=== PATIENT | female | born 1995 | race Caucasian/White ===

== ENCOUNTER 2016-09-04 20:05 | Emergency (ER) | payer OTHER ==
--- NOTE | 2016-09-04 22:45 | DIAGNOSTIC IMAGING REPORT ---
PROCEDURE: XR ANKLE 3 OR 4 VIEWS - LEFT INDICATION: Pain, fall on stairs TECHNIQUE: Four views of the left ankle. COMPARISON: None. FINDINGS: Normal mineralization. No fractures. Ankle mortise intact. Normal osseous alignment. No tibiotalar joint effusion. No suspicious soft-tissue calcification or radiodense foreign bodies. Achilles tendon appears grossly normal. IMPRESSION: 1. Intact left ankle.
--- NOTE | 2016-09-05 02:38 | ED ORDER SUMMARY ---
..... Patient: JESSICA CASTELLON OrderSheet [facility] VisitID: [id number] [place] [address] 21y, F Registration Date/Time: 09/04/2016 ORDER SHEET Weight: 52.1 kg (stated) Allergies: No Known Drug Allergy GENERAL ORDERS: Ankle 3 or 4V Right Urgent (20:18 09/04/2016 HBivens A.R.N.P.) (Ack 20:19 Yairimana) (Cancelled: Other20:22 [facility] Infectious Disease Technician) Ankle 3 or 4V Left Urgent (20:23 09/04/2016 [facility] Infectious Disease Technician written order HBivens A.R.N.P.) (Ack 20:24 Yairimana) (20:33 [facility]amp[facility]) MEDICATION ORDERS: IV FLUIDS: ORDER SHEET NOTES: [Electronically signed by Bertha Celis.R.N.PJustino (22:20 09/04/2016)] [Electronically signed by Mague Bronson R.N. (06:20 09/05/2016)] [Electronically locked/signed by Mague Bronson R.N. (06:20 09/05/2016)]
--- NOTE | 2016-09-05 02:38 | ED NURSING NOTES ---
Clinical Report - Nurses [address] [place] [address] 09/04/2016 20:08 Patient: JESSICA CASTELLON TRIAGE Triage time 20:18 Sep 04 2016. Acuity: LEVEL 3. Chief Complaint: INJURY TO LEFT ANKLE. LEBRON COMA SCORE: [place] Coma Scale: 15- eyes open spontaneously (4); best verbal response- oriented x 4 (5); best motor response- obeys commands (6). --20:22 Mague Bronson R.N. 20:18 09/04/16. BP: 129/77. HR: 87. RR: 20. O2 saturation: 100%. Temp: 98.1 F. Pain level now 3/10. --20:22 Mague Bronson R.N. Weight: 52.1 kg stated. Height/Length: 65 inches Per Patient. BMI: 19.1. --20:21 Mague Bronson R.N. Medications Dayquil. --20:20 Mague Bronson R.N. Allergies No Known Drug Allergy. --20:20 Mague Bronson R.N. History Arrived by private vehicle. Historian: patient. This occurred just prior to arrival. Mechanism of injury: fell. 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 She has had mild trouble walking. The patient has been limping when trying to walk. No numbness, tingling, weakness, neck pain or back pain. 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 PAST MEDICAL HX: Negative. Tetanus status: up-to-date. Immunizations: up-to-date. Last normal menstrual period- 2 weeks ago. SOCIAL HX: Never smoker. Alcohol use; consumes beer occasionally. No drug use. No infectious disease exposure. SELF HARM ASSESSMENT: A self harm assessment was performed. The patient answered "no" to the question "Have you recently felt down, depressed, or hopeless?" and "Do you have thoughts of harming or killing yourself?". FALL RISK ASSESSMENT: Fall risk assessment completed. No fall risk identified. NUTRITIONAL RISK ASSESSMENT: The nutritional risk assessment revealed no deficiencies. FUNCTIONAL ASSESSMENT: Functional assessment: no impairments noted. LEARNING NEEDS ASSESSMENT: The learning needs assessment revealed no barriers. ABUSE ASSESSMENT: Abuse assessment: (yes) The patient was asked "Do you feel safe in your home?". SKIN INTEGRITY ASSESSMENT: Skin integrity risk assessment completed. No skin integrity risk identified. --20:22 Mague Bronson R.N. PROBLEMS: no known problems. ADDITIONAL SURGERIES: no known surgeries. Interventions ID band on patient. --20:22 Mague Bronson R.N. PHYSICAL ASSESSMENT Ambulatory to room. GENERAL / NEURO / PSYCH: Oriented X 4. Appears in pain. EXTREMITIES: Capillary refill is less than 2 seconds in the extremities. Extremity pulses are within normal limits. Pain with weight bearing. Limping gait. Neuro-vascular status intact to the extremity. Left ankle: and ankle: tenderness. SKIN: Skin intact. Skin is warm and dry. --20:23 Mague Bronson R.N. NURSING PROGRESS NOTES Cold pack applied. Reassurance given. Call light placed in reach. Side rails up x 1. --20:23 Mague Bronson R.N. DISPOSITION / DISCHARGE Departure time: 21:46 Sep 04 2016. Condition at departure: improved. No learning barriers present. Discharge instructions provided and reviewed with the patient. Reviewed warnings. Reviewed medication(s). Treatments reviewed. Reviewed referrals. Patient verbalized understanding. Written instructions provided in Slovenian. The patient was discharged home and accompanied by fundraising specialist. She left the Emergency Department ambulatory and via private vehicle. Patient driving. --21:46 Mague Bronson R.N. 21:37 09/04/16. BP: 117/65. HR: 86. RR: 18. O2 saturation: 100%. Temp: 98.4 F. Pain level now 08/09. --21:46 Mague Bronson R.N. Locked/Released at 09/05/2016 6:21 by Mague Bronson R.N.
--- NOTE | 2016-09-05 02:38 | ED ORDER SUMMARY ---
..... Patient: JESSICA CASTELLON OrderSheet [facility] VisitID: [id number] [place] [address] 21y, F Registration Date/Time: 09/04/2016 ORDER SHEET Weight: 52.1 kg (stated) Allergies: No Known Drug Allergy GENERAL ORDERS: Ankle 3 or 4V Right Urgent (20:18 09/04/2016 HBivens A.R.N.P.) (Ack 20:19 Yairimana) (Cancelled: Other20:22 [facility] Information Technology Assistant) Ankle 3 or 4V Left Urgent (20:23 09/04/2016 [facility] Information Technology Assistant written order HBivens A.R.N.P.) (Ack 20:24 Yairimana) (20:33 MCampbell) MEDICATION ORDERS: IV FLUIDS: ORDER SHEET NOTES: [Electronically signed by Bertha Celis.R.N.PJustino (22:20 09/04/2016)] [Electronically signed by Mague Bronson R.N. (06:20 09/05/2016)] [Electronically locked/signed by Mague Bronson R.N. (06:20 09/05/2016)]
--- NOTE | 2016-09-05 02:38 | ED NURSING NOTES ---
Clinical Report - Nurses [address] [place] [address] 09/04/2016 20:08 Patient: JESSICA CASTELLON TRIAGE Triage time 20:18 Sep 04 2016. Acuity: LEVEL 3. Chief Complaint: INJURY TO LEFT ANKLE. LEBRON COMA SCORE: [place] Coma Scale: 15- eyes open spontaneously (4); best verbal response- oriented x 4 (5); best motor response- obeys commands (6). --20:22 Mague Bronson R.N. 20:18 09/04/16. BP: 129/77. HR: 87. RR: 20. O2 saturation: 100%. Temp: 98.1 F. Pain level now 3/10. --20:22 Mague Bronson R.N. Weight: 52.1 kg stated. Height/Length: 65 inches Per Patient. BMI: 19.1. --20:21 Mague Bronson R.N. Medications Dayquil. --20:20 Mague Bronson R.N. Allergies No Known Drug Allergy. --20:20 Mague Bronson R.N. History Arrived by private vehicle. Historian: patient. This occurred just prior to arrival. Mechanism of injury: fell. 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 She has had mild trouble walking. The patient has been limping when trying to walk. No numbness, tingling, weakness, neck pain or back pain. 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 PAST MEDICAL HX: Negative. Tetanus status: up-to-date. Immunizations: up-to-date. Last normal menstrual period- 2 weeks ago. SOCIAL HX: Never smoker. Alcohol use; consumes beer occasionally. No drug use. No infectious disease exposure. SELF HARM ASSESSMENT: A self harm assessment was performed. The patient answered "no" to the question "Have you recently felt down, depressed, or hopeless?" and "Do you have thoughts of harming or killing yourself?". FALL RISK ASSESSMENT: Fall risk assessment completed. No fall risk identified. NUTRITIONAL RISK ASSESSMENT: The nutritional risk assessment revealed no deficiencies. FUNCTIONAL ASSESSMENT: Functional assessment: no impairments noted. LEARNING NEEDS ASSESSMENT: The learning needs assessment revealed no barriers. ABUSE ASSESSMENT: Abuse assessment: (yes) The patient was asked "Do you feel safe in your home?". SKIN INTEGRITY ASSESSMENT: Skin integrity risk assessment completed. No skin integrity risk identified. --20:22 Mague Bronson R.N. PROBLEMS: no known problems. ADDITIONAL SURGERIES: no known surgeries. Interventions ID band on patient. --20:22 Mague Bronson R.N. PHYSICAL ASSESSMENT Ambulatory to room. GENERAL / NEURO / PSYCH: Oriented X 4. Appears in pain. EXTREMITIES: Capillary refill is less than 2 seconds in the extremities. Extremity pulses are within normal limits. Pain with weight bearing. Limping gait. Neuro-vascular status intact to the extremity. Left ankle: and ankle: tenderness. SKIN: Skin intact. Skin is warm and dry. --20:23 Mague Bronson R.N. NURSING PROGRESS NOTES Cold pack applied. Reassurance given. Call light placed in reach. Side rails up x 1. --20:23 Mague Bronson R.N. DISPOSITION / DISCHARGE Departure time: 21:46 Sep 04 2016. Condition at departure: improved. No learning barriers present. Discharge instructions provided and reviewed with the patient. Reviewed warnings. Reviewed medication(s). Treatments reviewed. Reviewed referrals. Patient verbalized understanding. Written instructions provided in Thai. The patient was discharged home and accompanied by communication consultant. She left the Emergency Department ambulatory and via private vehicle. Patient driving. --21:46 Mague Bronson R.N. 21:37 09/04/16. BP: 117/65. HR: 86. RR: 18. O2 saturation: 100%. Temp: 98.4 F. Pain level now 08/09. --21:46 Mague Bronson R.N. Locked/Released at 09/05/2016 6:21 by Mague Bronson R.N.
--- NOTE | 2016-09-05 02:38 | ED CLINICAL REPORT ---
Clinical Report - Physicians/Mid Levels [facility] [address] [place] [address] 09/04/2016 20:08 Patient: JESSICA CASTELLON Time Seen: 20:11; upon arrival, initial patient contact, initial documentation, patient care assumed. Arrived- By private vehicle. Historian- patient. HISTORY OF PRESENT ILLNESS Chief Complaint: Injury to the left ankle. The injury happened just prior to arrival. Fell while walking and landed on a concrete surface; slipped. Occurred at work. Patient is experiencing mild pain. Patient denies injury to the head or neck. Patient also notes injury to the right lower extremity (knee). REVIEW OF SYSTEMS The patient complains of pain on weight bearing. No swelling, tingling, weakness, numbness or skin laceration. All systems otherwise negative, except as recorded above. PAST HISTORY Negative. SOCIAL HISTORY Never smoker. No alcohol use or drug use. No recent travel. Is a local resident. FAMILY HISTORY No significant family medical history. ADDITIONAL NOTES The nursing notes have been reviewed with agreement regarding the chief complaint, HPI, ROS, PMH and patient medications and allergies. PHYSICAL EXAM Vital Signs: 09/04/2016 20:18 BP: 129/77. HR: 87. RR: 20. O2 saturation: 100%. Temp: 98.1 F. Have been reviewed as normal and appear to be correct. Appearance: Alert. Oriented X3. No acute distress. Head: Head atraumatic. Eyes: Pupils equal, round and reactive to light. Eyes normal inspection. Neck: Normal inspection. Neck supple. C-spine non-tender. Respiratory: No respiratory distress. Back: Normal inspection. No tenderness. ROM normal. Skin: Skin intact. Skin warm and dry. Extremities: Ankle injury present. Left lateral ankle: mild tenderness of the lateral malleolus. Neurovascular intact distally. No ligamentous laxity present. No joint effusion. No erythema, swelling, laceration, abrasion or ecchymosis. No puncture wound. No limitation in ROM. No foot injury. Foot and ankle exam otherwise negative. Extremities otherwise negative. Gait: Normal gait. Neuro, Vascular and Tendons: Vascular status intact. Sensation intact. Motor intact. Tendon function intact. Neuro: Oriented X 3. No motor deficit. No sensory deficit. LABS, X-RAYS, AND EKG X-Rays: X-rays are normal and reveal no acute disease (reviewed by dr perdomo). Left ankle negative. The X-rays were independently viewed by me. PROGRESS AND PROCEDURES Course of Care: 20:18 09/04/16. pt has brief beena, nothing alarming 21:31 09/04/16. L&I paperwork completed. Patient counseled in person regarding the patient's stable condition, test results and diagnosis. Differential Diagnosis: Other possible considerations: ankle fx vs sprain. Above considerations are based on history, physical exam and X-Ray data. Differential diagnosis was discussed with patient. Disposition: Discharged home in good and unchanged condition (21:31). Condition: good and stable. CLINICAL IMPRESSION Sprain of the tibiofibular ligament of the left ankle. Fall on same level by slipping. INSTRUCTIONS Apply ice for 20 minutes four times a day for one days. Elevate affected areas above chest level for one days until better. Warnings: GENERAL WARNINGS: Return or contact your physician immediately if your condition worsens or changes unexpectedly, if not improving as expected, or if other problems arise. Specifically return if problem worsens. Prescription Medications: Naproxen 500 mg tablets: take 1 orally every 12 hours as needed for pain. Dispense twenty (20). No refills. Follow-up: Follow up with your doctor in about one week as needed. Call for an appointment. Summary of care provided to patient. Understanding of the discharge instructions verbalized by patient. (Electronically signed by Bertha Celis A.R.N.P. 09/04/2016 22:20)
--- NOTE | 2016-09-05 06:21 | ED MED RECONCILIATION SUMMARY ---
Patient: JESSICA CASTELLON Medication Reconciliation Report [facility] VisitID: [id number] [place] [address] 21y, F Registration Date/Time: 09/04/2016 Weight: 52.1 kg Height/Length: 65 in. BMI: 19.1 ALLERGIES: No Known Drug Allergy The patient's Home Medications are listed below: THE FOLLOWING MEDICATIONS NEED TO BE RECONCILED: Dayquil The source(s) of the original Home Medication information: Not obtained. The following Medications were given to the patient in the Emergency Department: None. The following Medications were prescribed to the patient: Naproxen 500 mg tablets: take 1 orally every 12 hours as needed for pain. Dispense twenty (20). No refills. -- Bertha Celis A.R.N.P.
--- NOTE | 2016-09-05 06:21 | ED DISCHARGE INSTRUCTIONS ---
Patient: JESSICA CASTELLON General Instructions [facility] VisitID: [id number] [place] [address] 21y, F Registration Date/Time: 09/04/2016 Sprain of the tibiofibular ligament of the left ankle. Fall on same level by slipping. INSTRUCTIONS Apply ice for 20 minutes four times a day for one days. Elevate affected areas above chest level for one days until better. Warnings: GENERAL WARNINGS: Return or contact your physician immediately if your condition worsens or changes unexpectedly, if not improving as expected, or if other problems arise. Specifically return if problem worsens. Prescription Medications: Naproxen 500 mg tablets: take 1 orally every 12 hours as needed for pain. Dispense twenty (20). No refills. Follow-up: Follow up with your doctor in about one week as needed. Call for an appointment. Summary of care provided to patient. Understanding of the discharge instructions verbalized by patient. ADDITIONAL INFORMATION Mechanical Fall You have had a fall today. It appears that the cause is mechanical. That means that you slipped, tripped or lost your balance. If your fall had been due to fainting or a seizure, further tests would be required. Home Care: Rest today and resume your normal activities when you are feeling back to normal. If you were injured during the fall, follow the advice from your doctor regarding care of your injury. You may use acetaminophen (Tylenol) or ibuprofen (Motrin, Advil) to control pain, unless another pain medicine was prescribed. [NOTE: If you have chronic liver or kidney disease or ever had a stomach ulcer or GI bleeding, talk with your doctor before using these medicines.] Fall Prevention: Was there anything that caused your fall that can be fixed, removed, or replaced? Make your home safe by keeping walkways clear of objects you may trip over. Use non-slip pads under rugs. Do not walk in poorly lit areas. Do not stand on chairs or wobbly ladders. Use caution when reaching overhead or looking upward. This position can cause a loss of balance. Be sure your shoes fit properly, have non-slip bottoms and are in good condition. Be cautious when going up and down curbs, and walking on uneven sidewalks. If your balance is poor, consider using a cane or walker. Stay as active as you can. Balance, flexibility, strength, and endurance all come from exercise. They all play a role in preventing falls. Follow Up with your doctor or as advised by our staff. Get Prompt Medical Attention if any of the following occur: Repeated mechanical falls, or unexplained falls Dizziness, fainting or seizure Severe headache Chest pain or shortness of breath Palpitations (very rapid or very slow or irregular heartbeat) Blood in vomit, stools (black or red color) Weakness of an arm or leg or one side of the face Difficulty with speech or vision Sprain, Ankle,With X-Ray A sprain is an injury to the ligaments or capsule that holds a joint together. There are no broken bones. Most sprains take from four to six weeks to heal. If the ligament is completely torn (severe sprain), it can take several months to recover. Mild to moderate sprains may be treated with an elastic wrap or an in-shoe splint to provide support and prevent re-injury. A mild sprain may not require any additional support. A severe sprain may require surgery to repair. Home care The following guidelines will help you care for your injury at home: Stay off the injured leg as much as possible until you can walk on it without pain. If you have a lot of pain with walking, crutches or a walker may be prescribed. (These can be rented or purchased at many pharmacies and surgical or orthopedic supply stores). Follow your doctor's advice regarding when to begin bearing weight on that leg. Keep your leg elevated to reduce pain and swelling. When sleeping, place a pillow under the injured leg. When sitting, support the injured leg so it is level with your waist. This is very important during the first 48 hours. Apply an ice pack (ice cubes in a plastic bag, wrapped in a towel) over the injured area for 20 minutes every 12 hours the first day. You can place the ice pack directly over the splint/cast. If you were given a boot, open it to apply the ice pack. Continue with ice packs 34 times a day for the next two days, then as needed for the relief of pain and swelling. You may use acetaminophen or ibuprofen to control pain, unless another pain medicine was prescribed. If you have chronic liver or kidney disease or ever had a stomach ulcer or GI bleeding, talk with your doctor before using these medicines. You may return to sports after healing, when you can run without pain. A sprained ankle is at risk for re-injury during the first six weeks. During that time, protect your ankle with an in-shoe splint that prevents tilting of your ankle from side to side. This is very important if you do active work or play sports during that time. Follow-up care Any X-rays you had today dont show any broken bones, breaks, or fractures. Sometimes fractures dont show up on the first X-ray. Bruises and sprains can sometimes hurt as much as a fracture. These injuries can take time to heal completely. If your symptoms dont improve or they get worse, talk with your doctor. You may need a repeat X-ray. When to seek medical care Get prompt medical attention if any of the following occur: The plaster cast or splint gets wet or soft The fiberglass cast or splint gets wet and does not dry for 24 hours Pain or swelling increases, or redness appears Toes become cold, blue, numb or tingly Re-injure your ankle Naproxen Sodium Oral tablet What is this medicine? NAPROXEN (na PROX en) is a non-steroidal anti-inflammatory drug (NSAID). It is used to reduce swelling and to treat pain. This medicine may be used for dental pain, headache, or painful monthly periods. It is also used for painful joint and muscular problems such as arthritis, tendinitis, bursitis, and gout. How should I use this medicine? Take this medicine by mouth with a glass of water. Follow the directions on the prescription label. Take it with food if your stomach gets upset. Try to not lie down for at least 10 minutes after you take it. Take your medicine at regular intervals. Do not take your medicine more often than directed. Long-term, continuous use may increase the risk of heart attack or stroke. A special MedGuide will be given to you by the pharmacist with each prescription and refill. Be sure to read this information carefully each time. Talk to your dietary aide teacher regarding the use of this medicine in children. Special care may be needed. What side effects may I notice from receiving this medicine? Side effects that you should report to your doctor or health child care worker as soon as possible: black or bloody stools, blood in the urine or vomit blurred vision chest pain difficulty breathing or wheezing nausea or vomiting severe stomach pain skin rash, skin redness, blistering or peeling skin, hives, or itching slurred speech or weakness on one side of the body swelling of eyelids, throat, lips unexplained weight gain or swelling unusually weak or tired yellowing of eyes or skin Side effects that usually do not require medical attention (report to your doctor or health child care worker if they continue or are bothersome): constipation headache heartburn What may interact with this medicine? alcohol aspirin cidofovir diuretics lithium methotrexate other drugs for inflammation like ketorolac or prednisone pemetrexed probenecid warfarin What if I miss a dose? If you miss a dose, take it as soon as you can. If it is almost time for your next dose, take only that dose. Do not take double or extra doses. Where should I keep my medicine? Keep out of the reach of children. Store at room temperature between 15 and 30 degrees C (59 and 86 degrees F). Keep container tightly closed. Throw away any unused medicine after the expiration date. What should I tell my health care provider before I take this medicine? They need to know if you have any of these conditions: asthma cigarette smoker drink more than 3 alcohol containing drinks a day heart disease or circulation problems such as heart failure or leg edema (fluid retention) high blood pressure kidney disease liver disease stomach bleeding or ulcers an unusual or allergic reaction to naproxen, aspirin, other NSAIDs, other medicines, foods, dyes, or preservatives or trying to get breast-feeding What should I watch for while using this medicine? Tell your doctor or health child care worker if your pain does not get better. Talk to your doctor before taking another medicine for pain. Do not treat yourself. This medicine does not prevent heart attack or stroke. In fact, this medicine may increase the chance of a heart attack or stroke. The chance may increase with longer use of this medicine and in people who have heart disease. If you take aspirin to prevent heart attack or stroke, talk with your doctor or health child care worker. Do not take other medicines that contain aspirin, ibuprofen, or naproxen with this medicine. Side effects such as stomach upset, nausea, or ulcers may be more likely to occur. Many medicines available without a prescription should not be taken with this medicine. This medicine can cause ulcers and bleeding in the stomach and intestines at any time during treatment. Do not smoke cigarettes or drink alcohol. These increase irritation to your stomach and can make it more susceptible to damage from this medicine. Ulcers and bleeding can happen without warning symptoms and can cause . You may get drowsy or dizzy. Do not drive, use machinery, or do anything that needs mental alertness until you know how this medicine affects you. Do not stand or sit up quickly, especially if you are an older patient. This reduces the risk of dizzy or fainting spells. This medicine can cause you to bleed more easily. Try to avoid damage to your teeth and gums when you brush or floss your teeth. You have been given the following additional information: Fall, Mechanical Sprain, Ankle, With X-Ray Naproxen Sodium Oral tablet (Electronically signed by Bertha Celis A.R.N.P. 09/04/2016 22:20)
--- NOTE | 2016-09-05 06:21 | ED MAR SUMMARY ---
..... Medication Administration Record [facility] [address] [place], [place] [id number] Patient: JESSICA CASTELLON Visit ID: [id number] 21y, F Weight: 52.1 kg Height/Length: 65 in BMI: 19.1 ALLERGIES: No Known Drug Allergy
--- NOTE | 2016-09-05 06:21 | ED MAR SUMMARY ---
..... Medication Administration Record [facility] [address], [place] [id number] Patient: JESSICA CASTELLON Visit ID: [id number] 21y, F Weight: 52.1 kg Height/Length: 65 in BMI: 19.1 ALLERGIES: No Known Drug Allergy
--- NOTE | 2016-09-05 06:21 | ED MED RECONCILIATION SUMMARY ---
Patient: JESSICA CASTELLON Medication Reconciliation Report [facility] VisitID: [id number] [place] [address] 21y, F Registration Date/Time: 09/04/2016 Weight: 52.1 kg Height/Length: 65 in. BMI: 19.1 ALLERGIES: No Known Drug Allergy The patient's Home Medications are listed below: THE FOLLOWING MEDICATIONS NEED TO BE RECONCILED: Dayquil The source(s) of the original Home Medication information: Not obtained. The following Medications were given to the patient in the Emergency Department: None. The following Medications were prescribed to the patient: Naproxen 500 mg tablets: take 1 orally every 12 hours as needed for pain. Dispense twenty (20). No refills. -- Bertha Celis A.R.N.P.
== END 2016-09-04 21:45 | disposition home or self-care (01) ==
LOC: ED SRH 20:05
DX: S93.432A Sprain of tibiofibular ligament of left ankle, initial encounter (principal); W01.0XXA Fall on same level from slipping, tripping and stumbling without subsequent striking against object, initial encounter; Y92.9 Unspecified place or not applicable; Y93.01 Activity, walking, marching and hiking; Y99.0 Civilian activity done for income or pay

== ENCOUNTER 2016-09-23 21:00 | Emergency (ER) | payer OTHER ==
--- NOTE | 2016-09-23 22:19 | ED NURSING NOTES ---
Clinical Report - Nurses [facility] [address] [place] [address] 09/23/2016 21:00 Patient: JESSICA CASTELLON TRIAGE Triage time 21:25. Acuity: LEVEL 4. Chief Complaint: LEFT LOWER EXTREMITY PAIN and SWELLING. --21: Linh Dia 21:25 09/23/16. BP: 104/63. HR: 75. RR: 16. O2 saturation: 100%. Temp: 98 F. Pain level now: 10/07. --21: Melita Dia. Weight: 56.6 kg. Height/Length: 64 inches. BMI: 21.4. --: Linh Dia Medications None. --: Linh Dia Allergies No Known Drug Allergy. --: Linh Dia History Arrived by private vehicle. Historian: patient. Accompanied by friend. ( pt hurt her left ankle on 09-04 and was seen her pt is back because she states that pain is worse and ankle still hurts, pt has not followed up with any other MD). Injury occurred. 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 PAST MEDICAL HX: Tetanus status: up-to-date. Immunizations: up-to-date. Last normal menstrual period was 1 week ago. SOCIAL HX: Never smoker. No alcohol use or drug use. No infectious disease exposure. FALL RISK ASSESSMENT: Fall risk assessment completed. No fall risk identified. NUTRITIONAL RISK ASSESSMENT: The nutritional risk assessment revealed no deficiencies. FUNCTIONAL ASSESSMENT: Functional assessment: no impairments noted. LEARNING NEEDS ASSESSMENT: The learning needs assessment revealed no barriers. SKIN INTEGRITY ASSESSMENT: Skin integrity risk assessment completed. No skin integrity risk identified. --: Melita Dia. ADDITIONAL SURGERIES: no known surgeries. Interventions ID band on patient. To treatment room. --21: Linh Dia PHYSICAL ASSESSMENT Ambulatory to room. GENERAL / NEURO / PSYCH: Oriented X 4. Alert. Appears in no acute distress. EXTREMITIES: Extremity pulses are within normal limits. Extremities exhibit normal ROM. Neuro-vascular status intact to the extremity. No lower extremity edema. Left lateral ankle: tenderness. ( pt states putting pressure on foot hurts). SKIN: Skin intact. Skin is warm and dry. --21:31 Linh Dia DISPOSITION / DISCHARGE Departure time: 22:32. Condition at departure: improved. No learning barriers present. Reviewed medication(s). Treatments reviewed. Reviewed referrals. Follow up contact number. Patient verbalized understanding. Written instructions provided in Tam[place]. No diet instructions, activity restrictions or stop smoking instructions. No work note given or school note given. The patient was discharged by the physician perioperative assistant. She was discharged home and accompanied by power crane operator. She left the Emergency Department ambulatory and via private vehicle. Doctor Podiatric Medicine driving. FALL RISK ASSESSMENT: Fall risk assessment completed. No fall risk identified. --22:32 Linh Dia 22:31 09/23/16. BP: 110/68. HR: 74. RR: 18. O2 saturation: 99%. Temp: deferred. Pain level now: 0/10. --22:32 Linh Dia Locked/Released at 09/23/2016 22:33 by Linh Dia
--- NOTE | 2016-09-23 22:19 | ED NURSING NOTES ---
Clinical Report - Nurses [facility] [address] [place] [address] 09/23/2016 21:00 Patient: JESSICA CASTELLON TRIAGE Triage time 21:25. Acuity: LEVEL 4. Chief Complaint: LEFT LOWER EXTREMITY PAIN and SWELLING. --21: Linh Dia 21:25 09/23/16. BP: 104/63. HR: 75. RR: 16. O2 saturation: 100%. Temp: 98 F. Pain level now: 10/07. --21: Melita Dia. Weight: 56.6 kg. Height/Length: 64 inches. BMI: 21.4. --: Linh Dia Medications None. --: Linh Dia Allergies No Known Drug Allergy. --: Linh Dia History Arrived by private vehicle. Historian: patient. Accompanied by friend. ( pt hurt her left ankle on 09-04 and was seen her pt is back because she states that pain is worse and ankle still hurts, pt has not followed up with any other MD). Injury occurred. 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 PAST MEDICAL HX: Tetanus status: up-to-date. Immunizations: up-to-date. Last normal menstrual period was 1 week ago. SOCIAL HX: Never smoker. No alcohol use or drug use. No infectious disease exposure. FALL RISK ASSESSMENT: Fall risk assessment completed. No fall risk identified. NUTRITIONAL RISK ASSESSMENT: The nutritional risk assessment revealed no deficiencies. FUNCTIONAL ASSESSMENT: Functional assessment: no impairments noted. LEARNING NEEDS ASSESSMENT: The learning needs assessment revealed no barriers. SKIN INTEGRITY ASSESSMENT: Skin integrity risk assessment completed. No skin integrity risk identified. --: Melita Dia. ADDITIONAL SURGERIES: no known surgeries. Interventions ID band on patient. To treatment room. --21: Linh Dia PHYSICAL ASSESSMENT Ambulatory to room. GENERAL / NEURO / PSYCH: Oriented X 4. Alert. Appears in no acute distress. EXTREMITIES: Extremity pulses are within normal limits. Extremities exhibit normal ROM. Neuro-vascular status intact to the extremity. No lower extremity edema. Left lateral ankle: tenderness. ( pt states putting pressure on foot hurts). SKIN: Skin intact. Skin is warm and dry. --21:31 Linh Dia DISPOSITION / DISCHARGE Departure time: 22:32. Condition at departure: improved. No learning barriers present. Reviewed medication(s). Treatments reviewed. Reviewed referrals. Follow up contact number. Patient verbalized understanding. Written instructions provided in Kiswahili. No diet instructions, activity restrictions or stop smoking instructions. No work note given or school note given. The patient was discharged by the physician architectural administrative assistant. She was discharged home and accompanied by licensing registration examiner. She left the Emergency Department ambulatory and via private vehicle. Molded Candles Wicker driving. FALL RISK ASSESSMENT: Fall risk assessment completed. No fall risk identified. --22:32 Linh Dia 22:31 09/23/16. BP: 110/68. HR: 74. RR: 18. O2 saturation: 99%. Temp: deferred. Pain level now: 0/10. --22:32 Linh Dia Locked/Released at 09/23/2016 22:33 by Linh Dia
--- NOTE | 2016-09-23 22:19 | ED CLINICAL REPORT ---
Clinical Report - Physicians/Mid Levels [facility] [address] [place] [address] 09/23/2016 21:00 Patient: JESSICA CASTELLON Time Seen: 2099Sep 23 2016. Arrived- By private vehicle. Historian- patient. HISTORY OF PRESENT ILLNESS Chief Complaint: Injury to the left ankle. The injury happened just prior to arrival. (Patient reports injury to her left angle, 2 weeks, she reports since then she has been able to walk around, has been using crutches, and continues to have pain, however over the last 4 days, after stepping onto her foot and ankle developed more pain, and a popping sensation at the time. Reports pain has worsened since incident. Denies otherwise any new swelling.). REVIEW OF SYSTEMS The patient complains of pain on weight bearing. No skin laceration. All systems otherwise negative, except as recorded above. PAST HISTORY The patient has not had a prior injury to the same area. SOCIAL HISTORY No drug use. ADDITIONAL NOTES The nursing notes have been reviewed. PHYSICAL EXAM Vital Signs: 09/23/2016 21:25 BP: 104/63. HR: 75. RR: 16. O2 saturation: 100%. Temp: 98 F. Pain level now: 4/10. Appearance: Alert. Head: Head atraumatic. ENT: Ears normal. Nose normal. Neck: Normal inspection. CVS: Normal heart rate and rhythm. Pulses normal. Respiratory: No respiratory distress. Breath sounds normal. Skin: Skin intact. Skin warm. Extremities: Foot/ankle soft-tissue tenderness. Ankle stable. Left medial ankle. No tenderness or swelling. Left anterior ankle. No tenderness or swelling. Left lateral ankle: tenderness and mild swelling of the lateral ligaments. No ligamentous laxity present. No joint effusion. No ecchymosis or foreign body. No bony tenderness of the feet or ankles. No foot injury. Neuro, Vascular and Tendons: No pulse deficit present. No functional tendon deficit. Gait: Limping gait. Neuro: Oriented X 3. LABS, X-RAYS, AND EKG Lt Ankle X-ray: (IMPRESSION: 1. Intact left ankle. Electronically Final signed by:Kristal Mcadams MD 09/23/2016 10:23:12 PM). PROGRESS AND PROCEDURES Splint Application: Time: 22:32 Sep 23 2016. Orthopedic boot applied to left foot and ankle. Course of Care: Patient here with no signs of fracture. Likely ankle instability of the ligamentous injury, which she previously did not heal. She should follow-up with podiatry. Otherwise pain is not out of proportion to injury. No Achilles injuries. Stable. Patient is stable. Physical exam findings are improved. Symptoms better. Patient/family counseled. Disposition: Discharged. CLINICAL IMPRESSION Sprain of the tibiofibular ligament of the left ankle. INSTRUCTIONS Apply ice. Wear boot orthosis. Elevate affected areas above chest level. Prescription Medications: Ibuprofen 800 mg tablets: take 1 tablet orally every 8 hours for 5 days, as needed for pain or swelling. Dispense fifteen (15). No refill. Follow-up with: Russ Mike DPM, Podiatry, , [address], [facility] [address] Follow up. Call for the next available appointment. (Electronically signed by Yazmin Ayon P.A.-C 09/23/2016 22:33)
--- NOTE | 2016-09-23 22:19 | ED CLINICAL REPORT ---
Clinical Report - Physicians/Mid Levels [facility] [address] [place] [place] [address] 09/23/2016 21:00 Patient: JESSICA CASTELLON Time Seen: 2099Sep 23 2016. Arrived- By private vehicle. Historian- patient. HISTORY OF PRESENT ILLNESS Chief Complaint: Injury to the left ankle. The injury happened just prior to arrival. (Patient reports injury to her left angle, 2 weeks, she reports since then she has been able to walk around, has been using crutches, and continues to have pain, however over the last 4 days, after stepping onto her foot and ankle developed more pain, and a popping sensation at the time. Reports pain has worsened since incident. Denies otherwise any new swelling.). REVIEW OF SYSTEMS The patient complains of pain on weight bearing. No skin laceration. All systems otherwise negative, except as recorded above. PAST HISTORY The patient has not had a prior injury to the same area. SOCIAL HISTORY No drug use. ADDITIONAL NOTES The nursing notes have been reviewed. PHYSICAL EXAM Vital Signs: 09/23/2016 21:25 BP: 104/63. HR: 75. RR: 16. O2 saturation: 100%. Temp: 98 F. Pain level now: 4/10. Appearance: Alert. Head: Head atraumatic. ENT: Ears normal. Nose normal. Neck: Normal inspection. CVS: Normal heart rate and rhythm. Pulses normal. Respiratory: No respiratory distress. Breath sounds normal. Skin: Skin intact. Skin warm. Extremities: Foot/ankle soft-tissue tenderness. Ankle stable. Left medial ankle. No tenderness or swelling. Left anterior ankle. No tenderness or swelling. Left lateral ankle: tenderness and mild swelling of the lateral ligaments. No ligamentous laxity present. No joint effusion. No ecchymosis or foreign body. No bony tenderness of the feet or ankles. No foot injury. Neuro, Vascular and Tendons: No pulse deficit present. No functional tendon deficit. Gait: Limping gait. Neuro: Oriented X 3. LABS, X-RAYS, AND EKG Lt Ankle X-ray: (IMPRESSION: 1. Intact left ankle. Electronically Final signed by:Kristal Mcadams MD 09/23/2016 10:23:12 PM). PROGRESS AND PROCEDURES Splint Application: Time: 22:32 Sep 23 2016. Orthopedic boot applied to left foot and ankle. Course of Care: Patient here with no signs of fracture. Likely ankle instability of the ligamentous injury, which she previously did not heal. She should follow-up with podiatry. Otherwise pain is not out of proportion to injury. No Achilles injuries. Stable. Patient is stable. Physical exam findings are improved. Symptoms better. Patient/family counseled. Disposition: Discharged. CLINICAL IMPRESSION Sprain of the tibiofibular ligament of the left ankle. INSTRUCTIONS Apply ice. Wear boot orthosis. Elevate affected areas above chest level. Prescription Medications: Ibuprofen 800 mg tablets: take 1 tablet orally every 8 hours for 5 days, as needed for pain or swelling. Dispense fifteen (15). No refill. Follow-up with: Russ Mike DPM, Podiatry, , [address], [facility] [address] Follow up. Call for the next available appointment. (Electronically signed by Yazmin Ayon P.A.-C 09/23/2016 22:33)
--- NOTE | 2016-09-23 22:19 | ED ORDER SUMMARY ---
..... Patient: JESSICA CASTELLON OrderSheet [facility] VisitID: [id number] [address] [place] [address] 21y, F Registration Date/Time: 09/23/2016 ORDER SHEET Weight: 56.6 kg Allergies: No Known Drug Allergy GENERAL ORDERS: Ankle 3 or 4V Left Urgent (21:36 09/23/2016 Brian Carver) (Ack 21:43 AMcQuoid ER Tech1) (21:56 MCampbell) Splint (LE) (Left) (ankle boot, the one that is just inferior to the knee) (22:14 09/23/2016 Brian Carver) (22:23 Lee Melton) MEDICATION ORDERS: IV FLUIDS: ORDER SHEET NOTES: [Electronically signed by Yazmin Ayon P.A.-C (22:33 09/23/2016)] [Electronically signed by Yovana Ferguson R.N. (22:33 09/23/2016)] [Electronically locked/signed by Yovana Ferguson R.N. (22:33 09/23/2016)]
--- NOTE | 2016-09-23 22:19 | ED ORDER SUMMARY ---
..... Patient: JESSICA CASTELLON OrderSheet [facility] VisitID: [id number] [address] [place] [address] 21y, F Registration Date/Time: 09/23/2016 ORDER SHEET Weight: 56.6 kg Allergies: No Known Drug Allergy GENERAL ORDERS: Ankle 3 or 4V Left Urgent (21:36 09/23/2016 Brian Carver) (Ack 21:43 AMcQuoid ER Tech1) (21:56 MCampbell) Splint (LE) (Left) (ankle boot, the one that is just inferior to the knee) (22:14 09/23/2016 Brian Carver) (22:23 Lee Melton) MEDICATION ORDERS: IV FLUIDS: ORDER SHEET NOTES: [Electronically signed by Yazmin Ayon P.A.-C (22:33 09/23/2016)] [Electronically signed by Yovana Ferguson R.N. (22:33 09/23/2016)] [Electronically locked/signed by Yovana Ferguson R.N. (22:33 09/23/2016)]
--- NOTE | 2016-09-23 22:23 | DIAGNOSTIC IMAGING REPORT ---
PROCEDURE: XR ANKLE 3 OR 4 VIEWS - LEFT INDICATION: TRAUMA/INJURY TECHNIQUE: Four views of the left ankle. COMPARISON: 09/04/2016 FINDINGS: Normal mineralization. No fractures. Ankle mortise intact. Normal osseous alignment. No tibiotalar joint effusion. No suspicious soft-tissue calcification or radiodense foreign bodies. Achilles tendon appears grossly normal. IMPRESSION: 1. Intact left ankle.
--- NOTE | 2016-09-23 22:33 | ED MED RECONCILIATION SUMMARY ---
Patient: JESSICA CASTELLON Medication Reconciliation Report [facility] VisitID: [id number] [address] [place] [address] 21y, F Registration Date/Time: 09/23/2016 Weight: 56.6 kg Height/Length: 64 in. BMI: 21.4 ALLERGIES: No Known Drug Allergy The patient's Home Medications are listed below: NONE. The source(s) of the original Home Medication information: Not obtained. The following Medications were given to the patient in the Emergency Department: None. The following Medications were prescribed to the patient: Ibuprofen 800 mg tablets: take 1 tablet orally every 8 hours for 5 days, as needed for pain or swelling. Dispense fifteen (15). No refill. -- Yazmin Ayon P.A.-C
--- NOTE | 2016-09-23 22:33 | ED MED RECONCILIATION SUMMARY ---
Patient: JESSICA CASTELLON Medication Reconciliation Report [facility] VisitID: [id number] [address] [place] [address] 21y, F Registration Date/Time: 09/23/2016 Weight: 56.6 kg Height/Length: 64 in. BMI: 21.4 ALLERGIES: No Known Drug Allergy The patient's Home Medications are listed below: NONE. The source(s) of the original Home Medication information: Not obtained. The following Medications were given to the patient in the Emergency Department: None. The following Medications were prescribed to the patient: Ibuprofen 800 mg tablets: take 1 tablet orally every 8 hours for 5 days, as needed for pain or swelling. Dispense fifteen (15). No refill. -- Yazmin Ayon P.A.-C
--- NOTE | 2016-09-23 22:33 | ED MAR SUMMARY ---
..... Medication Administration Record [facility] [address] [place], [place] [id number] Patient: JESSICA CASTELLON Visit ID: [id number] 21y, F Weight: 56.6 kg Height/Length: 64 in BMI: 21.4 ALLERGIES: No Known Drug Allergy
--- NOTE | 2016-09-23 22:33 | ED MAR SUMMARY ---
..... Medication Administration Record [facility] [address] [place], [place] [id number] Patient: JESSICA CASTELLON Visit ID: [id number] 21y, F Weight: 56.6 kg Height/Length: 64 in BMI: 21.4 ALLERGIES: No Known Drug Allergy
--- NOTE | 2016-09-23 22:33 | ED DISCHARGE INSTRUCTIONS ---
Patient: JESSICA CASTELLON General Instructions [facility] VisitID: [id number] [place] [address] 21y, F Registration Date/Time: 09/23/2016 Sprain of the tibiofibular ligament of the left ankle. INSTRUCTIONS Apply ice. Wear boot orthosis. Elevate affected areas above chest level. Prescription Medications: Ibuprofen 800 mg tablets: take 1 tablet orally every 8 hours for 5 days, as needed for pain or swelling. Dispense fifteen (15). No refill. Follow-up with: Russ Mike DPM, Podiatry, , [address] [facility] [address], [place], [address] Follow up. Call for the next available appointment. ADDITIONAL INFORMATION Sprain, Ankle,With X-Ray A sprain is an injury to the ligaments or capsule that holds a joint together. There are no broken bones. Most sprains take from four to six weeks to heal. If the ligament is completely torn (severe sprain), it can take several months to recover. Mild to moderate sprains may be treated with an elastic wrap or an in-shoe splint to provide support and prevent re-injury. A mild sprain may not require any additional support. A severe sprain may require surgery to repair. Home care The following guidelines will help you care for your injury at home: Stay off the injured leg as much as possible until you can walk on it without pain. If you have a lot of pain with walking, crutches or a walker may be prescribed. (These can be rented or purchased at many pharmacies and surgical or orthopedic supply stores). Follow your doctor's advice regarding when to begin bearing weight on that leg. Keep your leg elevated to reduce pain and swelling. When sleeping, place a pillow under the injured leg. When sitting, support the injured leg so it is level with your waist. This is very important during the first 48 hours. Apply an ice pack (ice cubes in a plastic bag, wrapped in a towel) over the injured area for 20 minutes every 12 hours the first day. You can place the ice pack directly over the splint/cast. If you were given a boot, open it to apply the ice pack. Continue with ice packs 34 times a day for the next two days, then as needed for the relief of pain and swelling. You may use acetaminophen or ibuprofen to control pain, unless another pain medicine was prescribed. If you have chronic liver or kidney disease or ever had a stomach ulcer or GI bleeding, talk with your doctor before using these medicines. You may return to sports after healing, when you can run without pain. A sprained ankle is at risk for re-injury during the first six weeks. During that time, protect your ankle with an in-shoe splint that prevents tilting of your ankle from side to side. This is very important if you do active work or play sports during that time. Follow-up care Any X-rays you had today dont show any broken bones, breaks, or fractures. Sometimes fractures dont show up on the first X-ray. Bruises and sprains can sometimes hurt as much as a fracture. These injuries can take time to heal completely. If your symptoms dont improve or they get worse, talk with your doctor. You may need a repeat X-ray. When to seek medical care Get prompt medical attention if any of the following occur: The plaster cast or splint gets wet or soft The fiberglass cast or splint gets wet and does not dry for 24 hours Pain or swelling increases, or redness appears Toes become cold, blue, numb or tingly Re-injure your ankle Aircast Sp-Walker Boot Traditional splints and casts for the foot and ankle protect the injury by preventing movement at the joints. However, many injuries heal better and faster if the injured joint can be moved, while protected at the same time. This is the reason for using an Aircast Walker boot. This is a short boot that provides support and protection to the foot and ankle while allowing you to walk. It contains padded air cells that provide compression and help circulation. It is used for both foot and ankle injuries - both sprains and minor fractures. Ankle and foot sprains can take 4-6 weeks to heal. Persons with severe injuries or over age 60 may require more time to heal. During that time, you are prone to re-injury by suddenly twisting your foot or ankle again while the ligaments are still weak. When treating a sprain, the AirCast Walker boot should be worn whenever walking for at least four weeks, or as long as you continue to have ankle pain. Talk to your doctor for specific advice about the treatment of your condition. Air-Stirrup and SP-Walker are trademarks of [employer]. For more information about their products, see www.[email or web address]. You have been given the following additional information: Sprain, Ankle, With X-Ray Walker Boot (Electronically signed by Yazmin Ayon P.A.-C 09/23/2016 22:33)
--- NOTE | 2016-09-23 22:33 | ED DISCHARGE INSTRUCTIONS ---
Patient: JESSICA CASTELLON General Instructions [facility] VisitID: [id number] [place] [address] 21y, F Registration Date/Time: 09/23/2016 Sprain of the tibiofibular ligament of the left ankle. INSTRUCTIONS Apply ice. Wear boot orthosis. Elevate affected areas above chest level. Prescription Medications: Ibuprofen 800 mg tablets: take 1 tablet orally every 8 hours for 5 days, as needed for pain or swelling. Dispense fifteen (15). No refill. Follow-up with: Russ Mike DPM, Podiatry, , [address] [facility] [address], [place], [address] Follow up. Call for the next available appointment. ADDITIONAL INFORMATION Sprain, Ankle,With X-Ray A sprain is an injury to the ligaments or capsule that holds a joint together. There are no broken bones. Most sprains take from four to six weeks to heal. If the ligament is completely torn (severe sprain), it can take several months to recover. Mild to moderate sprains may be treated with an elastic wrap or an in-shoe splint to provide support and prevent re-injury. A mild sprain may not require any additional support. A severe sprain may require surgery to repair. Home care The following guidelines will help you care for your injury at home: Stay off the injured leg as much as possible until you can walk on it without pain. If you have a lot of pain with walking, crutches or a walker may be prescribed. (These can be rented or purchased at many pharmacies and surgical or orthopedic supply stores). Follow your doctor's advice regarding when to begin bearing weight on that leg. Keep your leg elevated to reduce pain and swelling. When sleeping, place a pillow under the injured leg. When sitting, support the injured leg so it is level with your waist. This is very important during the first 48 hours. Apply an ice pack (ice cubes in a plastic bag, wrapped in a towel) over the injured area for 20 minutes every 12 hours the first day. You can place the ice pack directly over the splint/cast. If you were given a boot, open it to apply the ice pack. Continue with ice packs 34 times a day for the next two days, then as needed for the relief of pain and swelling. You may use acetaminophen or ibuprofen to control pain, unless another pain medicine was prescribed. If you have chronic liver or kidney disease or ever had a stomach ulcer or GI bleeding, talk with your doctor before using these medicines. You may return to sports after healing, when you can run without pain. A sprained ankle is at risk for re-injury during the first six weeks. During that time, protect your ankle with an in-shoe splint that prevents tilting of your ankle from side to side. This is very important if you do active work or play sports during that time. Follow-up care Any X-rays you had today dont show any broken bones, breaks, or fractures. Sometimes fractures dont show up on the first X-ray. Bruises and sprains can sometimes hurt as much as a fracture. These injuries can take time to heal completely. If your symptoms dont improve or they get worse, talk with your doctor. You may need a repeat X-ray. When to seek medical care Get prompt medical attention if any of the following occur: The plaster cast or splint gets wet or soft The fiberglass cast or splint gets wet and does not dry for 24 hours Pain or swelling increases, or redness appears Toes become cold, blue, numb or tingly Re-injure your ankle Aircast Sp-Walker Boot Traditional splints and casts for the foot and ankle protect the injury by preventing movement at the joints. However, many injuries heal better and faster if the injured joint can be moved, while protected at the same time. This is the reason for using an Aircast Walker boot. This is a short boot that provides support and protection to the foot and ankle while allowing you to walk. It contains padded air cells that provide compression and help circulation. It is used for both foot and ankle injuries - both sprains and minor fractures. Ankle and foot sprains can take 4-6 weeks to heal. Persons with severe injuries or over age 60 may require more time to heal. During that time, you are prone to re-injury by suddenly twisting your foot or ankle again while the ligaments are still weak. When treating a sprain, the AirCast Walker boot should be worn whenever walking for at least four weeks, or as long as you continue to have ankle pain. Talk to your doctor for specific advice about the treatment of your condition. Air-Stirrup and SP-Walker are trademarks of [employer]. For more information about their products, see [email or web address]. You have been given the following additional information: Sprain, Ankle, With X-Ray Walker Boot (Electronically signed by Yazmin Ayon P.A.-C 09/23/2016 22:33)
== END 2016-09-23 22:33 | disposition home or self-care (01) ==
LOC: ED SRH 21:00
DX: S93.492A Sprain of other ligament of left ankle, initial encounter (principal); X50.9XXA Other and unspecified overexertion or strenuous movements or postures, initial encounter; Y93.9 Activity, unspecified; Y92.9 Unspecified place or not applicable; Y99.9 Unspecified external cause status